=== PATIENT | female | born 1965 | race Caucasian/White ===

== ENCOUNTER 2018-10-10 11:54 | Emergency (ER) | payer MEDICAID, OTHER ==
[~2018-10-10] VITALS: Ht 157.5 cm; Wt 59.0 kg
[2018-10-10 12:47] VITALS: BP 163/81
[2018-10-10] MEDS ORDERED: cefTRIAXone SOD 1,000 MG VL IM ONE (14:15)
== END 2018-10-10 14:32 | disposition home or self-care (01) ==
LOC: ER 11:54
DX: S61.431A Puncture wound without foreign body of right hand, initial encounter (principal); L08.9 Local infection of the skin and subcutaneous tissue, unspecified; Z88.0 Allergy status to penicillin; W54.0XXA Bitten by dog, initial encounter; Y93.89 Activity, other specified; Y99.8 Other external cause status; Y92.89 Other specified places as the place of occurrence of the external cause
CPT/HCPCS: 96372; 99283; J0696

== ENCOUNTER 2022-07-24 15:55 | Emergency (ER) | payer MEDICAID ==
[~2022-07-24] VITALS: Ht 157.5 cm; Wt 51.8 kg
[2022-07-24] MEDS ORDERED: DOXY-332 PO (21:23)
[2022-07-24] MEDS ORDERED: ACET-1158 PO (21:23)
[2022-07-24] MEDS ORDERED: PRED20TA2 PO (21:23)
[2022-07-24 22:03] VITALS: BP 128/74
== END 2022-07-24 22:03 | disposition home or self-care (01) ==
LOC: ER 15:55
DX: U07.1 COVID-19 (principal); J06.9 Acute upper respiratory infection, unspecified; B97.29 Other coronavirus as the cause of diseases classified elsewhere
CPT/HCPCS: 36415; 71045; 87426; 87804